=== PATIENT | female | born 1975 | race African-American/Black ===

== ENCOUNTER 2020-04-23 12:37 | Emergency (ER) | payer MEDICAID ==
[~2020-04-23] VITALS: Ht 162.6 cm; Wt 66.7 kg
[~2020-04-23 12:37] MED LIST: HYDR-2551; IBU600T; VENL75CA78
[2020-04-23] MEDS ORDERED: CARV6.2551 PO (13:19)
[2020-04-23] MEDS ORDERED: TOPI50TA53 PO (13:19)
[2020-04-23] MEDS ORDERED: CLIN300C8 PO (13:19)
[2020-04-23] MEDS ORDERED: HYDR-4607 PO (13:19)
[2020-04-23] MEDS ORDERED: CYCL-611 PO (13:19)
[2020-04-23] MEDS ORDERED: IBUP600T28 PO (13:19)
[2020-04-23] MEDS ORDERED: ALBU0.084 NEB (13:19)
[2020-04-23] MEDS ORDERED: ACYC-166 PO (13:19)
[2020-04-23] MEDS ORDERED: HYDR25TA5 PO (13:19)
[2020-04-23] MEDS ORDERED: LEVE100020 PO (13:19)
[2020-04-23 13:22] LABS: Basophils # (auto) 0.1 10 ^3/uL (0-0.2); Basophils % (auto) 1.5 % (0.0-2.0); Eosinophils # (auto) 0.1 10 ^3/uL (0-0.8); Eosinophils % (auto) 2.3 % (0.0-7.0); Hematocrit 34.4 % (36.0-46.0); Hemoglobin 11.3 g/dL (12.2-16.2); Lymphocytes # (auto) 1.6 10 ^3/uL (0.4-5.4); Lymphocytes % (auto) 34.4 % (10.0-50.0); Mean Corpuscular Hemoglobin 28.4 pg (28.0-32.0); Mean Corpuscular Hgb Conc. 32.9 g/dL (32.0-36.0); Mean Corpuscular Volume 86.1 fL (80.0-100.0); Monocytes # (auto) 0.5 10 ^3/uL (0-1.3); Monocytes % (auto) 10.5 % (0.0-12.0); Neutrophils # (auto) 2.4 10 ^3/uL (1.6-8.6); Neutrophils % (auto) 51.3 % (37.0-80.0); Nucleated Red Blood Cells % 0.2 %; Platelet Count (auto) 311 10^3/uL (140-450); Red Cell Distribution Width 14.1 % (11.8-14.3); White Blood Cell 4.8 10^3/uL (4.4-10.8)
[2020-04-23] MEDS ORDERED: HYDR-4924 PO (13:25)
[2020-04-23] MEDS ORDERED: OMEP-434 PO (13:25)
[2020-04-23] MEDS ORDERED: SODIUM CHLORIDE 0.9% 1,000 ML IV ONE (13:30)
[2020-04-23 13:43] LABS: Potassium 3.6 mmol/L (3.5-5.1)
[2020-04-23 13:50] LABS: Albumin 3.6 g/dL (3.4-5.0); BUN/Creatinine Ratio 14.1; Bilirubin, Total 0.5 mg/dL (0.2-1.0); Calcium 9.2 mg/dL (8.5-10.1); Total Protein 8.5 g/dL (6.4-8.2)
[2020-04-23 14:04] LABS: Magnesium 2.1 mg/dL (1.6-2.6)
[2020-04-23 14:08] LABS: Creatine Kinase IFCC 65 U/L (26-192)
[2020-04-23 18:00] VITALS: BP 115/55
== END 2020-04-23 20:32 | disposition home or self-care (01) ==
LOC: ER 12:37 → EDBD 12:37 → ER 20:32
DX: G40.919 Epilepsy, unspecified, intractable, without status epilepticus (principal); I10 Essential (primary) hypertension
CPT/HCPCS: 36415; 71045; 80053; 82550; 83605; 83735; 84484; 85025; 93005; 96365; 99285; J1953; J7030; J7060

== ENCOUNTER 2020-04-26 10:30 | Emergency (ER) | payer MEDICAID ==
[~2020-04-26] VITALS: Ht 154.9 cm; Wt 69.9 kg
[~2020-04-26 10:30] MED LIST changes: +ACYC-166 PO; +ALBU0.084 NEB; +CARV6.2551 PO; +CLIN300C8 PO; +CYCL-611 PO; +HYDR-4607 PO; +HYDR-4924 PO; +HYDR25TA5 PO; +IBUP600T28 PO; +LEVE100020 PO; +OMEP-434 PO; +TOPI50TA53 PO
[2020-04-26 12:17] VITALS: BP 129/79
== END 2020-04-26 13:48 | disposition home or self-care (01) ==
LOC: ER 10:30 → EDBD 10:30 → ER 13:48
DX: S46.912A Strain of unspecified muscle, fascia and tendon at shoulder and upper arm level, left arm, initial encounter (principal); S83.8X2A Sprain of other specified parts of left knee, initial encounter; S73.102A Unspecified sprain of left hip, initial encounter; I10 Essential (primary) hypertension; Z79.899 Other long term (current) drug therapy; Z88.0 Allergy status to penicillin; Z88.1 Allergy status to other antibiotic agents; Z91.040 Latex allergy status; V49.9XXA Car occupant (driver) (passenger) injured in unspecified traffic accident, initial encounter; Y93.89 Activity, other specified; Y92.89 Other specified places as the place of occurrence of the external cause; Y99.8 Other external cause status
CPT/HCPCS: 73030; 73502; 73562; 93005